=== PATIENT | male | born 1985 | race Caucasian/White ===

== ENCOUNTER 2018-09-15 22:51 | Emergency (ER) | END 2018-09-16 19:25 ==

== ENCOUNTER 2018-11-09 15:55 | Emergency (ER) | payer SELFPAY ==
[~2018-11-09] VITALS: Ht 172.7 cm; Wt 70.0 kg
[~2018-11-09 15:55] MED LIST: CLON-412 PO; METH10TA2 PO; QUET200T PO
[2018-11-09 16:10] VITALS: BP 122/64; PULSE 68; RESP 18; Ht 172.7 cm; Wt 70.0 kg
== END 2018-11-09 16:40 | disposition left against medical advice (07) ==
LOC: E/R 15:55
DX: Z53.21 Procedure and treatment not carried out due to patient leaving prior to being seen by health care provider (principal)

== ENCOUNTER 2019-01-18 19:54 | Emergency (ER) | payer OTHER ==
[~2019-01-18] VITALS: Wt 89.0 kg
[2019-01-18] MEDS ORDERED: OLANZAPINE (ODT) 5 MG TAB PO STA (19:57)
[2019-01-18] MEDS ORDERED: LORAZEPAM 1 MG TAB PO ONE (21:00)
--- NOTE | 2019-01-18 21:35 | PSY ---
Date/Time of Note Date/Time of Note DATE: 01/18/19 TIME: 21:28 Psychiatric Subjective Eval Consent Pt consented to telemedicine: Yes Subjective Evaluation Patient location: emergency Chief Complaint: bib ra from street for psych eval, patient states he is suicidal and placem Reason for consult: SI Hospitalization: Suicidal Attempt(s) Medical history Problems Medical Problems: (1) Patient left without being seen Status: Acute (2) Polysubstance abuse Status: Acute (3) Suicidal ideation Status: Acute Allergies: Coded Allergies: Sulfa (Sulfonamide Antibiotics) (Verified Allergy, Severe, 09/16/18) Social History Marital status: single DPA/Conservatorship: No Psychiatric Objective Eval Mental Status Examination: Laboratory Results Laboratory Tests Test 01/18/19 20:10 White Blood Count 5.3 10^3/ul Red Blood Count 4.58 10^6/ul Hemoglobin 13.4 g/dl Hematocrit 41.5 % Mean Corpuscular Volume 90.6 fl Mean Corpuscular Hemoglobin 29.3 pg Mean Corpuscular Hemoglobin Concent 32.3 g/dl Red Cell Distribution Width 12.5 % Platelet Count 213 10^3/UL Mean Platelet Volume 9.1 fl Immature Granulocytes % 0.600 % Neutrophils % 45.8 % Lymphocytes % 35.9 % Monocytes % 9.7 % Eosinophils % 7.2 % Basophils % 0.8 % Nucleated Red Blood Cells % 0.0 /100WBC Immature Granulocytes # 0.030 10^3/ul Neutrophils # 2.4 10^3/ul Lymphocytes # 1.9 10^3/ul Monocytes # 0.5 10^3/ul Eosinophils # 0.4 10^3/ul Basophils # 0.0 10^3/ul Nucleated Red Blood Cells # 0.0 10^3/ul Urine Color YELLOW Urine Clarity SLIGHTLY CLOUDY Urine pH 5.0 Urine Specific [place] 1.016 Urine Ketones NEGATIVE mg/dL Urine Nitrite NEGATIVE mg/dL Urine Bilirubin NEGATIVE mg/dL Urine Urobilinogen NEGATIVE mg/dL Urine Leukocyte Esterase NEGATIVE Kim/ul Urine Microscopic RBC 0 /HPF Urine Microscopic WBC 0 /HPF Urine Hemoglobin NEGATIVE mg/dL Urine Glucose NEGATIVE mg/dL Urine Total Protein NEGATIVE mg/dl Sodium Level 141 mmol/L Potassium Level 3.9 mmol/L Chloride Level 103 mmol/L Carbon Dioxide Level 25 mmol/L Anion Gap 13 Blood Urea Nitrogen 11 mg/dl Creatinine 0.84 mg/dl Est Glomerular Filtrat Rate mL/min > 60 mL/min Glucose Level 87 mg/dl Calcium Level 9.5 mg/dl Total Bilirubin 0.2 mg/dl Direct Bilirubin 0.00 mg/dl Indirect Bilirubin 0.2 mg/dl Aspartate Amino Transf (AST/SGOT) 140 IU/L Alanine Aminotransferase (ALT/SGPT) 166 IU/L Alkaline Phosphatase 72 IU/L Total Protein 7.2 g/dl Albumin 4.3 g/dl Globulin 2.90 g/dl Albumin/Globulin Ratio 1.48 Salicylates Level < 1.0 mg/dl Urine Opiates Screen Negative Acetaminophen Level < 10.0 ug/ml Urine Barbiturates Negative Urine Amphetamines Screen Negative Urine Benzodiazepines Screen Positive Urine Cocaine Screen Negative Urine Cannabinoids Positive Ethyl Alcohol Level < 10.0 mg/dl Assessment and Plan Recommendation/Plan Discharge Disposition: Psychiatric inpatient Legal Status: Place involuntary hold Assessment Additional comments: IDENTIFYING INFORMATION: 33 year old Male patient who is currently located at the hospital and for whom psychiatric consultation was requested. SOURCES OF INFORMATION: The patient who appears to be reliable and the medical records; the nursing staff. Sober living Vamsi verma, ; was not called. Josh Munoz, was called at [phone] at 9:28 pm x3. He appears to be reliable. CHIEF COMPLAINT: "depressed". HISTORY OF PRESENT ILLNESS: The patient was interviewed via telemedicine in the presence of and under the supervision of nursing staff of the hospital. The consent to conducting this interview via telemedicine was obtained by the nursing staff at the hospital. HELGA Malhotra reports that the patient presented with SI. Has several ER visits over the past 4 days. Asked for a pudding as soon as he arrived at the ER. The patient reports having had a depressed mood, anhedonia, insomnia, SI with plan to jump off a building. Reports that he was discharged earlier this week because he did not have access to suboxone. Reports that he wants the klonopin changed to ativan. The patient denies having low appetite, AH, VH, delusions. The patient denies using alcohol heavily or regularly. The patient reports using opioids in the past; has been abstinent and on suboxone now. The patient denies using any other substances. In terms of past psychiatric history, the patient reports having a history of past psychiatric hospitalizations. The patient reports having a history of past suicide attempts. Dad reports that the pt had dealt with depression. Pt is not homeless. PAST MEDICAL HISTORY: HTN. CURRENT MEDICATIONS: lexapro 20 mg po qday, seroquel 300 mg po qday, klonopin 1 mg po bid, suboxone SL 4/2 mg bid. ALLERGIES TO MEDICATIONS: sulfa. LABORATORY TESTS: CBC with hemoglobin of 13.4, hematocrit 41.5, CMP with AST of 140, ALT 166, UDS positive for benzodiazepines, marijuana, alcohol level not detected. SOCIAL HISTORY: lives at a sober living, single, no kids, not employed, no access to firearms, applied to disability. REVIEW OF SYSTEMS: Constitutional (e.g., fever, weight loss): negative; Eyes, Ears, Nose, Mouth, Throat: negative; Cardiovascular: negative; Respiratory: negative; Gastrointestinal: negative; Genitourinary: negative; Musculoskeletal: negative; Integumentary (skin and/or breast): negative; Neurological: negative; Psychiatric: as per HPI; Endocrine: negative; Hematologic/Lymphatic: negative; Allergic/Immunologic: negative. MENTAL STATUS EXAMINATION: General Appearance and Behavior: Calm, cooperative with the interview, pleasant with the current interviewer, makes fair eye contact, fairly groomed, no abnormal movements noted, Speech: Regular rate, regular rhythm, normal latency, normal volume, somewhat decreased amount, Flow of thought: sequential, logical, goal-directed, Content of thought: no auditory hallucinations, no visual hallucinations, no delusions, positive for suicidal ideation; no homicidal ideation, Mood: "depressed", Affect: dysthymic, dysphoric, not reactive, Attention: normal based on the interview, Insight: fair, Judgment: poor, Memory: normal based on the interview, Sensorium: alert and oriented to person, place and date. ASSESSMENT: The patient's presentation and history are consistent with the diagnosis of unspecified mood disorder, Opiate use disorder. The patient presents in a major depressive episode in the context of medication compliance, psychosocial stressors. No evidence of psychosis, clementine, hypomania on exam. PLAN: - Medication management: Would continue lexapro 20 mg po qday, seroquel 300 mg po qday, klonopin 1 mg po bid, suboxone SL 4/2 mg bid. Would start haloperidol 5 mg IM PRN severe agitation q4 hours. Would start diphenhydramine 50 mg IM PRN severe agitation q4 hours. Would start lorazepam 2 mg IM PRN severe agitation q4 hours Will defer to the inpatient psychiatry team for other medication changes. - Labs: No other laboratory tests are needed at this time. - Psychotherapy: Provided supportive psychotherapy and psychoeducation. - Disposition: Would recommend involuntary admission to the inpatient psychiatric unit given the severity of the patient's psychiatric condition and the fact that the patient is an imminent danger to self and/or others so long as the patient has been cleared medically for admission to psychiatry. Inpatient psychiatric admission is at this time the least restrictive environment where the patient can receive the psychiatric care that is needed. Would place on suicide precautions. The patient fulfills criteria for being placed on an involuntary hold for being a danger to self due to a psychiatric disorder. Discussed about the above plan with Dr. Lopez . FERMIN CABELLO MD Jan 18, 2019 21:35
[2019-01-18] MEDS ORDERED: ESCI20TA PO (22:56)
[2019-01-18] MEDS ORDERED: BUPR1FIL5 SL (22:56)
[2019-01-18] MEDS ORDERED: QUET300T18 PO (22:56)
[2019-01-18] MEDS ORDERED: QUETIAPINE 100 MG TAB PO ONE (23:00)
--- NOTE | 2019-01-18 23:25 | ERD ---
ER Documentation Chief Complaint Chief Complaint bib ra from street for psych eval, patient states he is suicidal and placem HPI Patient is a 33-year-old male with hypertension who presents for suicidal thoughts. The patient was brought in by ambulance. He has increased anxiety and feeling suicidal depression. He has a plan to jump off a balcony. He is feeling depressed recently. Upon review of old medical records this is the patient's third visit to the ER since August 2018. Review of the emergency department information exchange system shows visits to separate emergency departments. ROS All systems reviewed and are negative except as per history of present illness. Medications Home Meds Reported Medications Buprenorphine Hcl-Naloxone Hcl (Suboxone SL) 4-1 Mg Film, 1 FILM SL, FILM 01/18/19 Escitalopram Oxalate* (Lexapro*) 20 Mg Tablet, 20 MG PO DAILY, #30 TAB 01/18/19 Quetiapine Fumarate* (Quetiapine Fumarate*) 300 Mg Tablet, 300 MG PO HS, TAB 01/18/19 Clonazepam* (Klonopin*) 1 Mg Tablet, 1 MG PO BID PRN for ANXIETY, TAB 09/16/18 Discontinued Reported Medications Quetiapine Fumarate* (Seroquel*) 200 Mg Tablet, 200 MG PO HS, #30 TAB 09/16/18 Methadone Hcl* (Methadone*) 10 Mg Tab, 90 MG PO QAM, TAB PER PT GETS M[facility]ADONE AT [facility] [phone] COUNSELORS NAME IS FANNY PT IS UPSET HE CLAIMS TO GET THIS EVERY MORNINGHE IS REQUESTING HIS MORNING DOSE AND IS VERY UPSET 09/16/18 Allergies Allergies: Coded Allergies: Sulfa (Sulfonamide Antibiotics) (Verified Allergy, Severe, 09/16/18) PMhx/Soc History of Surgery: No Anesthesia Reaction: No Hx Neurological Disorder: No Hx Respiratory Disorders: No Hx Cardiac Disorders: No Hx Psychiatric Problems: Yes (Bipolar, Depression) Hx Miscellaneous Medical Probl: No Hx Alcohol Use: Yes Hx Substance Use: No (BENZODIAPENES) Hx Tobacco Use: Yes Smoking Status: Current some day smoker FmHx Family History: No diabetes Physical Exam Vitals Vital Signs Date Temp Pulse Resp B/P (MAP) Pulse Ox O2 O2 Flow FiO2 Time Delivery Rate 01/18/19 98.1 75 19 126/65 100 19:57 (85) Physical Exam Const: No acute distress Head: Atraumatic Eyes: Normal Conjunctiva ENT: Normal External Ears, Nose and Mouth. Neck: Full range of motion. No meningismus. Resp: Clear to auscultation bilaterally Cardio: Regular rate and rhythm, no murmurs Abd: Soft, non tender, non distended. Normal bowel sounds Skin: No petechiae or rashes Back: No midline or flank tenderness Ext: No cyanosis, or edema Neur: Awake and alert Psych: Depressed affect, anxiety, and suicidal ideation with plan Result Diagram: 01/18/19200901/18/192009 Results 24 hrs Laboratory Tests Test 01/18/19 20:10 White Blood Count 5.3 10^3/ul Red Blood Count 4.58 10^6/ul Hemoglobin 13.4 g/dl Hematocrit 41.5 % Mean Corpuscular Volume 90.6 fl Mean Corpuscular Hemoglobin 29.3 pg Mean Corpuscular Hemoglobin Concent 32.3 g/dl Red Cell Distribution Width 12.5 % Platelet Count 213 10^3/UL Mean Platelet Volume 9.1 fl Immature Granulocytes % 0.600 % Neutrophils % 45.8 % Lymphocytes % 35.9 % Monocytes % 9.7 % Eosinophils % 7.2 % Basophils % 0.8 % Nucleated Red Blood Cells % 0.0 /100WBC Immature Granulocytes # 0.030 10^3/ul Neutrophils # 2.4 10^3/ul Lymphocytes # 1.9 10^3/ul Monocytes # 0.5 10^3/ul Eosinophils # 0.4 10^3/ul Basophils # 0.0 10^3/ul Nucleated Red Blood Cells # 0.0 10^3/ul Urine Color YELLOW Urine Clarity SLIGHTLY CLOUDY Urine pH 5.0 Urine Specific [place] 1.016 Urine Ketones NEGATIVE mg/dL Urine Nitrite NEGATIVE mg/dL Urine Bilirubin NEGATIVE mg/dL Urine Urobilinogen NEGATIVE mg/dL Urine Leukocyte Esterase NEGATIVE Kim/ul Urine Microscopic RBC 0 /HPF Urine Microscopic WBC 0 /HPF Urine Hemoglobin NEGATIVE mg/dL Urine Glucose NEGATIVE mg/dL Urine Total Protein NEGATIVE mg/dl Sodium Level 141 mmol/L Potassium Level 3.9 mmol/L Chloride Level 103 mmol/L Carbon Dioxide Level 25 mmol/L Anion Gap 13 Blood Urea Nitrogen 11 mg/dl Creatinine 0.84 mg/dl Est Glomerular Filtrat Rate mL/min > 60 mL/min Glucose Level 87 mg/dl Calcium Level 9.5 mg/dl Total Bilirubin 0.2 mg/dl Direct Bilirubin 0.00 mg/dl Indirect Bilirubin 0.2 mg/dl Aspartate Amino Transf (AST/SGOT) 140 IU/L Alanine Aminotransferase (ALT/SGPT) 166 IU/L Alkaline Phosphatase 72 IU/L Total Protein 7.2 g/dl Albumin 4.3 g/dl Globulin 2.90 g/dl Albumin/Globulin Ratio 1.48 Salicylates Level < 1.0 mg/dl Urine Opiates Screen Negative Acetaminophen Level < 10.0 ug/ml Urine Barbiturates Negative Urine Amphetamines Screen Negative Urine Benzodiazepines Screen Positive Urine Cocaine Screen Negative Urine Cannabinoids Positive Ethyl Alcohol Level < 10.0 mg/dl Current Medications Medications Dose Sig/Ezequiel Start Time Status Last (Trade) Ordered Route PRN Stop Time Admin Dose Reason Admin Olanzapine 5 mg ONCE STAT 01/18/19 DC 01/18/19 (Zyprexa PO 19:57 20:24 Zydis) 01/18/19 19:58 Lorazepam 1 mg ONCE ONCE 01/18/19 DC 01/18/19 (Ativan) PO 21:00 20:59 01/18/19 21:01 20 mg DAILY PO 01/19/19 Escitalopram 09:00 Oxalate (Lexapro) Quetiapine 300 mg QHS PO 01/19/19 Fumarate 21:00 (Seroquel) Quetiapine 300 mg ONCE ONCE 01/18/19 DC Fumarate PO 23:00 (Seroquel) 01/18/19 23:01 Clonazepam 1 mg BID PO 01/19/19 (Klonopin) 09:00 Procedures/MDM Patient is a 33-year-old male who presents with suicidal ideation with plan. The patient is medically clear. The patient was seen by psychiatry who recommended a 5150 hold. We are attempted to find placement at this time. Departure Diagnosis: Primary Impression: Suicidal ideation Condition: HALLEY Moss MD Jan 18, 2019 23:25
[2019-01-19] MEDS ORDERED: ESCITALOPRAM 10 MG TAB PO SCH (09:00)
[2019-01-19] MEDS ORDERED: clonAZEPAM 0.5 MG TAB PO SCH (09:00)
[2019-01-19 09:48] VITALS: BP 94/64; PULSE 64; RESP 17
[2019-01-19] MEDS ORDERED: QUETIAPINE 100 MG TAB PO SCH (21:00)
== END 2019-01-19 09:51 ==
LOC: E/R 19:54
DX: R45.851 Suicidal ideations (principal); F17.210 Nicotine dependence, cigarettes, uncomplicated
CPT/HCPCS: 80053; 80307; 81001; 85025; Z7610; 36415; 81003